=== PATIENT | male | born 1945 ===

== ENCOUNTER → 2018-01-10 | Day surgery (SDC) | payer OTHER ==
[~2018-01-10] MED LIST: CIPRO500 MG PO; HYOSCYAMINE0.125 M1 SL; INTESTINEX1 CA1 PO; Neurin-Sl Tablet Sl SL; OXYC1TAB9 PO
== END | disposition home or self-care (01) ==
LOC: ADM 01-03 13:30 → AMB-ENDOS 07:12
DX: K57.20 Diverticulitis of large intestine with perforation and abscess without bleeding (principal); K64.8 Other hemorrhoids